=== PATIENT | female | born 1995 | race African-American/Black ===

== ENCOUNTER 2016-02-26 07:58 | Emergency (ER) | payer MEDICAID ==
[2016-02-26] MEDS ORDERED: CEFTRIAXONE 1 GM VIAL ONE (08:53)
[2016-02-26] MEDS ORDERED: SODIUM CHLORIDE 0.9% 100 ML IV ONE (08:53)
== END 2016-02-26 09:30 | disposition home or self-care (01) ==
LOC: ER 07:58
DX: O23.13 Infections of bladder in pregnancy, third trimester (principal); N30.00 Acute cystitis without hematuria; Z3A.30 30 weeks gestation of pregnancy
CPT/HCPCS: 81001; 81025; 87088; 96365